=== PATIENT | male | born 1995 | race African-American/Black ===

== ENCOUNTER 2020-09-10 14:31 | Emergency (ER) | payer OTHER, SELFPAY | END 2020-09-10 15:02 | disposition home or self-care (01) | LOC: NAV ERS 14:31 | DX: S16.1XXA Strain of muscle, fascia and tendon at neck level, initial encounter (principal); V43.52XA Car driver injured in collision with other type car in traffic accident, initial encounter | CPT/HCPCS: 99283 ==